=== PATIENT | male | born 1945 | race Caucasian/White ===

== ENCOUNTER → 2018-02-04 | Outpatient (CLI) | payer MEDICARE ==
--- NOTE | 2018-02-04 12:57 | XR ---
EXAMINATION TYPE: Bilateral rib series DATE OF EXAM: 02/04/2018 COMPARISON: Chest radiograph 05/24/2014 HISTORY: 72-year-old male bilateral rib pain after lifting injury TECHNIQUE: 4 views each side FINDINGS: Median sternotomy wires are present with post-CABG clips. Stable nodule at the right base as compared to 2013, probable calcified granuloma. On the left, no displaced rib fracture. On the right, no displaced rib fracture. IMPRESSION: No displaced rib fracture seen on either side.
== END | disposition home or self-care (01) ==
LOC: RADXRYALE 09:41
PROVIDERS: ATTEND Internal Medicine
DX: R07.81 Pleurodynia (principal); R07.89 Other chest pain
CPT/HCPCS: 71110

== ENCOUNTER → 2020-04-16 | Outpatient (CLI) | payer MEDICARE | END | disposition home or self-care (01) | LOC: LABWHC1 10:42 | PROVIDERS: ATTEND Ophthalmology | DX: D48.5 Neoplasm of uncertain behavior of skin (principal) | CPT/HCPCS: U0003; C9803 ==

== ENCOUNTER → 2020-05-01 | Outpatient (CLI) | payer MEDICARE | END | disposition home or self-care (01) | LOC: LABWHC1 14:58 | PROVIDERS: ATTEND Internal Medicine | DX: Z20.828 Contact with and (suspected) exposure to other viral communicable diseases (principal) | CPT/HCPCS: U0003; C9803 ==

== ENCOUNTER → 2020-10-10 | Outpatient (CLI) | payer MEDICARE ==
--- NOTE | 2020-10-10 15:23 | XR ---
EXAMINATION TYPE: XR chest 2V DATE OF EXAM: 10/10/2020 COMPARISON: Chest CT May 11, 2016. Bilateral rib x-rays February 04, 2018 HISTORY: Cough for one month after covid shot TECHNIQUE: Frontal and lateral views of the chest are obtained. FINDINGS: Overlying sternal wires and mediastinal clips are redemonstrated. Mild chronic emphysemato us change with small right pleural effusion. Fairly stable roughly 1.0 cm right lower lobe calcified nodule or granuloma. Left lung remains clear. Underlying scoliosis. IMPRESSION: Chronic changes with new small right pleural effusion. Progress study advised, further i nvestigation warranted if unilateral effusion persists.
== END | disposition home or self-care (01) ==
LOC: RADXRYALE 14:39
PROVIDERS: ATTEND Internal Medicine Sleep Medicine
DX: J90 Pleural effusion, not elsewhere classified (principal)
CPT/HCPCS: 71046

== ENCOUNTER 2020-12-15 11:59 | Emergency (ER) | payer MEDICARE ==
[2020-12-15 12:10] VITALS: RESP 18; TEMP 98.1
[2020-12-15] MEDS ORDERED: SODIUM CHLORIDE 0.9% 500 ML 500 ML IV STA (12:17)
--- NOTE | 2020-12-15 12:21 | ED ---
General Adult HPI - General Chief complaint: Neuro Symptoms/Deficit Stated complaint: Unwell Time Seen by Provider: 12/15/20 12:06 Source: patient, EMS, RN notes reviewed Mode of arrival: EMS Limitations: no limitations - History of Present Illness Initial comments: This a 75-year-old male presents emergency Department chief complaint of not feeling right. Patient states that he started a new inhaler and took Cialis yesterday. Patient states that shortly after he started feeling dizzy fell using a pass out. He states he just doesn't feel right today. Denies any focal weakness denies any chest pain shortness of breath, headache or blurred vision. He felt like at one point that his speech was off but is normal at this time. Patient states he has CVA in 2014. Denies any other concretions at this time. - Related Data Home Medications Medication Instructions Recorded Confirmed Calcium Carbonate/Vitamin D3 1 each PO DAILY 12/18/14 01/22/15 [Calcium 600-Vit D3 400 Tablet] Carvedilol 6.25 mg PO BID 12/18/14 01/22/15 Cholecalciferol [Vitamin D3 (25 1,000 unit PO DAILY 12/18/14 01/22/15 Mcg = 1000 Iu)] Loratadine [Claritin] 10 mg PO DAILY 12/18/14 01/22/15 Omeprazole [PriLOSEC] 20 mg PO DAILY 12/18/14 01/22/15 Tamsulosin HCl 0.4 mg PO DAILY 12/18/14 01/22/15 ALPRAZolam 0.25 mg PO BID PRN 01/22/15 01/22/15 Previous Rx's Medication Instructions Recorded Aspirin EC [Ecotrin] 325 mg PO DAILY tablet.dr 01/24/15 Folic Acid 1 mg PO DAILY@1200 #30 tab 01/24/15 Multivitamins, Thera [Multivitamin 1 each PO DAILY@1200 #30 tab 01/24/15 (formulary)] Thiamine [Vitamin B-1] 100 mg PO DAILY@1200 #30 tab 01/24/15 Atorvastatin Calcium [Lipitor] 40 mg PO HS #30 tab 01/25/15 Allergies Allergy/AdvReac Type Severity Reaction Status Date / Time No Known Allergies Allergy Verified 01/22/15 11:33 Review of Systems ROS Statement: Those systems with pertinent positive or pertinent negative responses have been documented in the HPI. ROS Other: All systems not noted in ROS Statement are negative. 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 History of Any Multi-Drug Resistant Organisms: None Reported Past Surgical History: Coronary Bypass/CABG Past Anesthesia/Blood Transfusion Reactions: No Reported Reaction Past Psychological History: Anxiety Smoking Status: Former smoker Past Alcohol Use History: None Reported Past Drug Use History: None Reported - Past Family History Mother Family Medical History: CVA/TIA Brother(s) Family Medical History: Cancer, Coronary Artery Disease (CAD), CVA/TIA Additional Family Medical History / Comment(s): ANOTHER BROTHER-MULTIPLE CANCERS , ANOTHER BROTHER - CANCERS Sister(s) Family Medical History: Cancer General Exam Limitations: no limitations General appearance: alert, in no apparent distress Head exam: Present: atraumatic, normocephalic, normal inspection Eye exam: Present: normal appearance, PERRL, EOMI. Absent: scleral icterus, conjunctival injection, periorbital swelling ENT exam: Present: normal exam, normal oropharynx, mucous membranes moist Neck exam: Present: normal inspection, full ROM. Absent: tenderness, meningismus, lymphadenopathy Respiratory exam: Present: normal lung sounds bilaterally. Absent: respiratory distress, wheezes, rales, rhonchi, stridor Cardiovascular Exam: Present: regular rate, normal rhythm, normal heart sounds. Absent: systolic murmur, diastolic murmur, rubs, gallop, clicks Extremities exam: Present: normal inspection, full ROM, normal capillary refill, other (Upper and lower extremity strength equal bilaterally). Absent: tenderness, pedal edema, joint swelling, calf tenderness Back exam: Present: full ROM. Absent: tenderness Neurological exam: Present: alert, oriented X3, CN II-XII intact, reflexes normal, other (Finger to nose intact bilaterally without over shooting. Heel to mckoy normal). Absent: motor sensory deficit Skin exam: Present: warm, dry, intact, normal color. Absent: rash Course Vital Signs 12/15/20 12/15/20 12:00 12:32 Temperature 98.1 F Pulse Rate 87 81 Respiratory 18 18 Rate Blood Pressure 161/109 136/76 O2 Sat by Pulse 97 97 Oximetry - Reevaluation(s) Reevaluation #1: 12/15/20 13:05 [facility] was contacted for transfer at this time. I did received phone call from radiologist. Patient has cerebellar hemorrhage. EKG Findings - EKG Comments: EKG Findings:: EKG performed at 12:24 normal sinus rhythm rate of 72 SC 166 QRS 80 QT/QTC 362/396 Medical Decision Making - Medical Decision Making Patient's case discussed with Dr. Sanchez. Patient's case discussed with Xavier Pittman. Patient be transferred to [facility] via EMS. Patient is stable at this time. - Lab Data Result diagrams: 12/15/20 12:21 12/15/20 12:21 Lab Results 12/15/20 12/15/20 12/15/20 Range/Units 12:21 12:21 12:21 WBC 10.6 (3.8-10.6) k/uL RBC 3.72 L (4.30-5.90) m/uL Hgb 11.7 L (13.0-17.5) gm/dL Hct 34.4 L (39.0-53.0) % MCV 92.5 (80.0-100.0) fL MCH 31.4 (25.0-35.0) pg MCHC 33.9 (31.0-37.0) g/dL RDW 12.8 (11.5-15.5) % Plt Count 363 (150-450) k/uL MPV 7.3 Neutrophils % 81 % Lymphocytes % 11 % Monocytes % 5 % Eosinophils % 2 % Basophils % 1 % Neutrophils # 8.6 H (1.3-7.7) k/uL Lymphocytes # 1.2 (1.0-4.8) k/uL Monocytes # 0.6 (0-1.0) k/uL Eosinophils # 0.2 (0-0.7) k/uL Basophils # 0.1 (0-0.2) k/uL PT 10.0 (9.0-12.0) sec INR 0.9 (<1.2) APTT 22.4 (22.0-30.0) sec Sodium 140 (137-145) mmol/L Potassium 4.3 (3.5-5.1) mmol/L Chloride 103 (98-107) mmol/L Carbon Dioxide 27 (22-30) mmol/L Anion Gap 10 mmol/L BUN 32 H (9-20) mg/dL Creatinine 2.10 H (0.66-1.25) mg/dL Est GFR (CKD-EPI)AfAm 34 (>60 ml/min/1.73 sqM) Est GFR (CKD-EPI)NonAf 30 (>60 ml/min/1.73 sqM) Glucose 108 H (74-99) mg/dL Calcium 9.5 (8.4-10.2) mg/dL Total Bilirubin 0.7 (0.2-1.3) mg/dL AST 25 (17-59) U/L ALT 17 (4-49) U/L Alkaline Phosphatase 123 (38-126) U/L Total Protein 6.8 (6.3-8.2) g/dL Albumin 3.8 (3.5-5.0) g/dL Critical Care Time Critical Care Time: Yes Total Critical Care Time: 35 Critical Care Time: 434 hematocrit, used initially about patient review past medical or wearing labs EKG CT. Patient's found to have a cerebellar hemorrhage. Patient's case discussed with radiologist, interventional radiologist and Lovely. Disposition Clinical Impression: Cerebral hemorrhage Disposition: OTHER INSTITUTION NOT DEFINED Condition: Fair Referrals: Aicha Moreno MD [Primary Care Provider] - 1-2 days - Out of Hospital Transfer - Req. Specs Out of Hospital Transfer - Requested Specifics: Other Emergency Center ([facility])
[2020-12-15 12:36] LABS: Basophils # (A) 0.1 k/uL (0-0.2); Basophils % (A) 1 %; Eosinophils # (A) 0.2 k/uL (0-0.7); Eosinophils % (A) 2 %; HCT 34.4 % (39.0-53.0); HGB 11.7 gm/dL (13.0-17.5); Lymphocytes # (A) 1.2 k/uL (1.0-4.8); Lymphocytes % (A) 11 %; MCH 31.4 pg (25.0-35.0); MCHC 33.9 g/dL (31.0-37.0); MCV 92.5 fL (80.0-100.0); Mean Platelet Volume 7.3; Monocytes # (A) 0.6 k/uL (0-1.0); Monocytes % (A) 5 %; Neutrophils # (A) 8.6 k/uL (1.3-7.7); Neutrophils % (A) 81 %; Platelet Count 363 k/uL (150-450); RBC 3.72 m/uL (4.30-5.90); RDW 12.8 % (11.5-15.5); WBC 10.6 k/uL (3.8-10.6)
[2020-12-15 12:44] LABS: INR 0.9 (<1.2); Partial Thromboplastin Time 22.4 sec (22.0-30.0)
[2020-12-15 12:51] LABS: Albumin 3.8 g/dL (3.5-5.0); Calcium 9.5 mg/dL (8.4-10.2); Potassium 4.3 mmol/L (3.5-5.1); Total Bilirubin 0.7 mg/dL (0.2-1.3); Total Protein 6.8 g/dL (6.3-8.2)
--- NOTE | 2020-12-15 13:03 | CT ---
EXAMINATION TYPE: CT brain wo con DATE OF EXAM: 12/15/2020 COMPARISON: 01/24/2015 INDICATION: Trouble verbalizing and right sided weakness DLP: 1091.4 mGycm, Automated exposure control for dose reduction was used. CONTRAST: None CT of the brain is performed utilizing 3 mm thick sections through the posterior fossa and 3 mm thick sections through the remaining calvarium. Study is performed within 24 hours of arrival to the hosp [facility]. There is a 2.0 x 1.5 cm hyperdensity with surrounding hypodensity compatible with small hemorrhage wi thin the right cerebellum. Minimal mass effect on the fourth ventricle is evident. Quadrigeminal plat e and ambient cisterns are patent. No additional areas suspicious for acute hemorrhage are evident. Periventricular white matter hypoden sity is present, likely on the basis of chronic white matter ischemic changes. There is prominence of ventricles and sulci compatible with atrophy. Paranasal sinuses and mastoid air cells within the [id number] are clear. IMPRESSIONS: 1. 2.0 x 1.5 cm hemorrhage with some surrounding edema right cerebellum. Report was called to the e mergency room [facility] by Dr. Tariq by telephone at 1259 hours on 12/15/2020. 2. Chronic appearing periventricular white matter ischemic-type changes with some age-related atrophy .
--- NOTE | 2020-12-15 13:04 | XR ---
EXAMINATION TYPE: XR chest 2V DATE OF EXAM: 12/15/2020 COMPARISON: 10/10/2020 INDICATION: Acute mental status changes TECHNIQUE: Frontal and lateral views of the chest are obtained. FINDINGS: The heart size is normal. The pulmonary vasculature is normal. There appears to be some hyperinflation. Small right subpulmonic effusion is present. Some mild right lower lobe infiltrate is present. Posterior lung nodule may again be evident. IMPRESSION: 1. Small right pleural effusion. 2. Posterior right lung base nodule
[2020-12-15 13:19] VITALS: PULSE 87
[2020-12-15 13:50] VITALS: BP 134/86
== END 2020-12-15 13:50 | disposition other institution (70) ==
LOC: EC 11:59
DX: I61.9 Nontraumatic intracerebral hemorrhage, unspecified (principal); G81.91 Hemiplegia, unspecified affecting right dominant side; R41.82 Altered mental status, unspecified; E78.5 Hyperlipidemia, unspecified; I10 Essential (primary) hypertension; I25.10 Atherosclerotic heart disease of native coronary artery without angina pectoris; J90 Pleural effusion, not elsewhere classified; K21.9 Gastro-esophageal reflux disease without esophagitis; Z87.891 Personal history of nicotine dependence; Z79.82 Long term (current) use of aspirin; Z82.49 Family history of ischemic heart disease and other diseases of the circulatory system; Z85.828 Personal history of other malignant neoplasm of skin; Z95.1 Presence of aortocoronary bypass graft
CPT/HCPCS: 36415; 70450; 71046; 80053; 84484; 85025; 85610; 85730; 93005; 99291